=== PATIENT | male | born 2000 | race Hispanic/Latino ===

== ENCOUNTER 2023-03-08 17:46 | Emergency (ER) | payer OTHER, SELFPAY | END 2023-03-08 19:20 | disposition home or self-care (01) | LOC: CSHERS 17:46 | DX: S83.92XA Sprain of unspecified site of left knee, initial encounter (principal); V89.2XXA Person injured in unspecified motor-vehicle accident, traffic, initial encounter ==

== ENCOUNTER 2023-03-11 14:03 | Emergency (ER) | payer SELFPAY | END 2023-03-11 15:55 | disposition home or self-care (01) | LOC: CSHERS 14:03 | DX: M25.562 Pain in left knee (principal) | CPT/HCPCS: 99282 ==